=== PATIENT | male | born 1930 ===

== ENCOUNTER 2020-05-20 19:05 | Inpatient (IN) | payer OTHER ==
[2020-05-20] MEDS ORDERED: CEFEPIME HCL/D5W 2 GM/50 ML BAG IVPB ONE (19:40)
[2020-05-20] MEDS ORDERED: CLINDAMYCIN 600MG PREMIX IVPB 600 MG/50 ML BAG IVPB ONE ×2 (19:40→20:08)
[2020-05-20] MEDS ORDERED: SODIUM CHLORIDE 0.9% 500 ML INFUS.BAG IV ONE (19:53)
[2020-05-20 20:35] LABS: BASO % 0.2 % (0-2.0); HEMOGLOBIN 7.8 GM/dL (11.7-16.9); LYMPH % 3.8 % (8-40); MCH 30.3 pg (25.7-33.7); MCHC 31.2 g/dl (32.0-35.9); MEAN CELL VOLUME 96.9 fl (80-96); MONO % 4.1 % (3.8-10.2); NEUT % 91.9 % (42.8-82.8); PLATELET COUNT 226 K/MM3 (134-434); RBC 2.58 M/mm3 (4.00-5.60)
[2020-05-20] MEDS ORDERED: CEFEPIME 2 GM/100 ML BAG IVPB ONE (20:43)
[2020-05-20 20:46] LABS: INR 1.49 (0.83-1.09); PROTHROMBIN TIME (PATIENT) 18.1 SEC (9.7-13.0)
[2020-05-20 20:49] LABS: ACTIVATED PTT 32.5 SECONDS (25.2-36.5)
[2020-05-20 20:54] LABS: CHLORIDE 106 mmol/L (98-107); POTASSIUM 5.5 mmol/L (3.5-5.1); SODIUM 151 mmol/L (136-145)
[2020-05-20 20:55] LABS: ANION GAP 3 MMOL/L (8-16); BLOOD UREA NITROGEN 24.8 mg/dL (7-18); CALCIUM 8.1 mg/dL (8.5-10.1); CO2 42 mmol/L (21-32); GLUCOSE,RANDOM 92 mg/dL (74-106)
[2020-05-20 20:59] LABS: CREATININE 0.4 mg/dL (0.55-1.3); SGOT/AST 71 U/L (15-37); SGPT/ALT 11 U/L (13-61)
[2020-05-20 21:01] LABS: BILIRUBIN,TOTAL 0.6 mg/dL (0.2-1)
[2020-05-20 21:02] LABS: ALK PHOS 84 U/L (45-117)
[2020-05-20 21:17] LABS: ARTERIAL BLD GAS O2 SATURATION 93.3 mmHg (95-98); ARTERIAL BLOOD GAS PO2 61.2 mmHg (80-100); ARTERIAL BLOOD GAS pH 7.532 (7.350-7.450)
[2020-05-20] MEDS ORDERED: LACTATED RINGERS SOLUTION 1000 ML INFUS.BAG IV ONE (21:27)
[2020-05-20 23:09] LABS: EPI CELLS 16 /uL (0-25.1); HYALINE CASTS 0 /uL (0-3.1); PH,URINE 7.5 (5.0-8.0); URINE APPEARANCE CLEAR; URINE BACTERIA 70 /uL (0-1359); URINE BILIRUBIN NEGATIVE (NEGATIVE); URINE COLOR YELLOW; URINE GLUCOSE (UA) NEGATIVE (NEGATIVE); URINE KETONE NEGATIVE (NEGATIVE); URINE LEUK ESTERASE NEGATIVE (NEGATIVE); URINE NITRITE NEGATIVE (NEGATIVE); URINE PROTEIN 2+ (NEGATIVE); URINE RBC 35 /uL (0-23.9); URINE WBC 5 /uL (0-25.8)
[2020-05-20 23:19] LABS: MACROCYTOSIS 1+; TARGET CELLS 1+
[2020-05-20 23:20] LABS: PLATELET ESTIMATE NORMAL; ROULEAU 1+
[2020-05-21] MEDS ORDERED: LACTATED RINGERS SOLUTION 1,000 ML/1,000 ML INFUS.BAG IV SCH (05:00)
[2020-05-21] MEDS ORDERED: VANCOMYCIN 1 GM in D5W (PRE-DOCKED) 1,000 MG/250 ML IVPB ONE (05:00)
[2020-05-21] MEDS ORDERED: SODIUM CHLORIDE 0.45% 1,000 ML IV SCH (05:45)
[2020-05-21] MEDS ORDERED: VANCOMYCIN 1 GRAM (PRE-DOCKED) 1,000 MG/250 ML BAG IVPB ONE (05:58)
[2020-05-21] MEDS ORDERED: CEFEPIME HCL/D5W 1 GM/50 ML BAG IVPB SCH (06:00)
[2020-05-21] MEDS ORDERED: HEPARIN NA (PORCINE) 5,000 UNITS/ML 1ML VIAL SQ SCH (06:00)
[2020-05-21] MEDS: METOPROLOL TARTRATE 25 MG TABLET (FP) PO SCH ×3 (06:16→21:16)
[2020-05-21] MEDS ORDERED: CLINDAMYCIN 600MG PREMIX IVPB 600 MG/50 ML BAG IVPB ONE (07:20)
[2020-05-21] MEDS ORDERED: ASPIRIN 81 MG CHEWABLE TABLETS ONE (07:25)
[2020-05-21] MEDS ORDERED: BACITRACIN 0.9 GM PACKET ONE (07:25)
[2020-05-21] MEDS: CLINDAMYCIN 600MG PREMIX IVPB 600 MG/50 ML BAG IVPB SCH ×2 (07:32→10:12)
[2020-05-21] MEDS: CEFEPIME HCL/D5W 2 GM/50 ML BAG IVPB SCH ×2 (07:32→11:49)
[2020-05-21 07:34] LABS: BASO % 0.2 % (0-2.0); EOS % 0.1 % (0-4.5); HEMATOCRIT 23.4 % (35.4-49); HEMOGLOBIN 7.2 GM/dL (11.7-16.9); MCH 29.8 pg (25.7-33.7); MCHC 30.8 g/dl (32.0-35.9); MEAN CELL VOLUME 96.8 fl (80-96); MEAN PLT VOLUME 10.6 fl (7.5-11.1); MONO % 6.6 % (3.8-10.2); NEUT % 85.1 % (42.8-82.8); PLATELET COUNT 157 K/MM3 (134-434); RBC 2.42 M/mm3 (4.00-5.60); WHITE BLOOD COUNT 8.2 K/mm3 (4.0-10.0)
[2020-05-21 07:55] LABS: CHLORIDE 109 mmol/L (98-107); SODIUM 154 mmol/L (136-145)
[2020-05-21 07:58] LABS: CALCIUM 7.8 mg/dL (8.5-10.1)
[2020-05-21 07:59] LABS: BLOOD UREA NITROGEN 25.1 mg/dL (7-18); CO2 40 mmol/L (21-32); GLUCOSE,RANDOM 105 mg/dL (74-106); MAGNESIUM 2.5 mg/dL (1.8-2.4)
[2020-05-21 08:02] LABS: CREATININE 0.4 mg/dL (0.55-1.3); SGOT/AST 16 U/L (15-37); SGPT/ALT 7 U/L (13-61)
[2020-05-21 08:03] LABS: TOT PROT 6.6 g/dl (6.4-8.2)
[2020-05-21 08:04] LABS: ALK PHOS 72 U/L (45-117)
[2020-05-21 08:25] LABS: ANION GAP 6 MMOL/L (8-16); POTASSIUM 2.8 mmol/L (3.5-5.1)
[2020-05-21] MEDS: KCL 10 MEQ IVPB 10 MEQ/100 ML INFUS.BAG IVPB SCH ×6 (09:27→19:58)
[2020-05-21] MEDS: ASPIRIN 81 MG CHEWABLE TABLETS PO SCH (10:12)
[2020-05-21] MEDS: levETIRAcetam 500 MG/5 ML INJECTION VIAL IVPB SCH ×2 (10:37→21:17)
[2020-05-21 11:31] LABS: ARTERIAL BLD GAS O2 SATURATION 98.9 mmHg (95-98); ARTERIAL BLOOD GAS BASE EXCESS 16.1 mmol/L (-2-2); ARTERIAL BLOOD GAS PO2 123.9 mmHg (80-100); ARTERIAL BLOOD GAS pH 7.599 (7.350-7.450)
[2020-05-21 11:34] LABS: ALLENS TEST POSITIVE
[2020-05-21 11:36] LABS: VENT MODE A/C
[2020-05-21 11:37] LABS: VENT RATE 16
[2020-05-21] MEDS ORDERED: PT OWN MED DRAWER 7, Y5N ONE ×3 (12:05→16:12)
[2020-05-21] MEDS ORDERED: PANTOPRAZOLE SODIUM 40 MG in SODIUM CHLORIDE 100 ML IVPB SCH (12:15)
[2020-05-21] MEDS: MUPIROCIN 2% TOPICAL OINTMENT FOR DECOLONIZATION NS SCH ×2 (12:30→21:18)
[2020-05-21] MEDS: PANTOPRAZOLE SODIUM 40 MG VIAL IVPUSH SCH (12:32)
[2020-05-21 13:17] LABS: PHOSPHOROUS 3.6 mg/dL (2.5-4.9)
[2020-05-21] MEDS ORDERED: SENNOSIDES 8.6MG TABLET (FP) PO PRN (13:25)
[2020-05-21 13:27] LABS: IRON SERUM 23 ug/dL (50-175); TOTAL IRON BINDING CAPACITY 147 ug/dL (250-450)
[2020-05-21] MEDS: ASCORBIC ACID 500 MG TABLET (FP) PO SCH (14:25)
[2020-05-21] MEDS: VALPROATE SODIUM 250 MG/5 ML UNIT DOSE CUP PO SCH ×2 (14:27→21:19)
[2020-05-21] MEDS ORDERED: ZINC OXIDE 20% TOPICAL OINTMENT 30 GM TUBE TP ONE (14:30)
[2020-05-21] MEDS ORDERED: TUBERCULIN PPD 5 TU/0.1ML SYRINGE (IN PATIENT USE ONLY) ID ONE (16:00)
[2020-05-21 17:02] LABS: BLOOD UREA NITROGEN 25.4 mg/dL (7-18); CALCIUM 7.6 mg/dL (8.5-10.1)
[2020-05-21 17:06] LABS: CREATININE 0.3 mg/dL (0.55-1.3)
[2020-05-21 17:15] LABS: POTASSIUM 2.7 mmol/L (3.5-5.1)
[2020-05-21] MEDS: MOXIFLOXACIN HCL 0.5% OPHTHALMIC 3 ML BOTTLE OD SCH ×2 (17:21→21:20)
[2020-05-21] MEDS: CEFEPIME 2 GM in DEXTROSE 5%-WATER 100 ML IVPB SCH (17:23)
[2020-05-21] MEDS: DEXTROSE 5%-WATER - 1,000 ML with POTASSIUM CHLORIDE 40 MEQ IV SCH (18:21)
[2020-05-21] MEDS: VANCOMYCIN 1 GRAM (PRE-DOCKED) 1,000 MG/250 ML BAG IVPB SCH (18:23)
[2020-05-21] MEDS: HEPARIN NA (PORCINE) 5,000 UNITS/ML 1ML VIAL SQ SCH (21:17)
[2020-05-21] MEDS: FERROUS SO4 300 MG/5 ML ORAL SOLN UNIT DOSE CUPS GT SCH (21:20)
[2020-05-21] MEDS ORDERED: CHLORHEXIDINE GLUCONATE 4% CLEANSER FOR DECOLONIZATION TP SCH (22:00)
[2020-05-21 22:21] LABS: CALCIUM 7.9 mg/dL (8.5-10.1)
[2020-05-21 22:25] LABS: CREATININE 0.4 mg/dL (0.55-1.3)
[2020-05-22] MEDS: LACTATED RINGERS SOLUTION 1,000 ML/1,000 ML INFUS.BAG IV SCH ×2 (01:11→01:12)
[2020-05-22] MEDS: CEFEPIME 2 GM in DEXTROSE 5%-WATER 100 ML IVPB SCH ×3 (01:12→17:23)
[2020-05-22] MEDS ORDERED: CEFEPIME HCL/D5W 2 GM/50 ML BAG IVPB SCH (02:00)
[2020-05-22] MEDS: DEXTROSE 5%-WATER - 1,000 ML with POTASSIUM CHLORIDE 40 MEQ IV SCH ×2 (06:19→14:34)
[2020-05-22] MEDS: VANCOMYCIN 1 GRAM (PRE-DOCKED) 1,000 MG/250 ML BAG IVPB SCH ×2 (06:21→17:24)
[2020-05-22] MEDS: METOPROLOL TARTRATE 25 MG TABLET (FP) PO SCH ×3 (06:21→22:00)
[2020-05-22] MEDS: MOXIFLOXACIN HCL 0.5% OPHTHALMIC 3 ML BOTTLE OD SCH ×3 (06:24→22:00)
[2020-05-22] MEDS: AMINO ACIDS/PROTEIN HYDROLYS 30 ML LIQUID.PKT PO SCH (08:22)
[2020-05-22] MEDS ORDERED: PT OWN MED DRAWER 7, Y5N ONE ×2 (09:50→16:28)
[2020-05-22] MEDS: FERROUS SO4 300 MG/5 ML ORAL SOLN UNIT DOSE CUPS GT SCH ×2 (09:55→22:00)
[2020-05-22] MEDS: levETIRAcetam 500 MG/5 ML INJECTION VIAL IVPB SCH ×2 (09:56→22:00)
[2020-05-22] MEDS: MUPIROCIN 2% TOPICAL OINTMENT FOR DECOLONIZATION NS SCH ×2 (09:56→22:56)
[2020-05-22] MEDS: PANTOPRAZOLE SODIUM 40 MG VIAL IVPUSH SCH (09:56)
[2020-05-22] MEDS: VALPROATE SODIUM 250 MG/5 ML UNIT DOSE CUP PO SCH ×2 (09:56→22:00)
[2020-05-22] MEDS: HEPARIN NA (PORCINE) 5,000 UNITS/ML 1ML VIAL SQ SCH ×2 (09:56→22:00)
[2020-05-22] MEDS: ASCORBIC ACID 500 MG TABLET (FP) PO SCH (09:57)
[2020-05-22] MEDS: ASPIRIN 81 MG CHEWABLE TABLETS PO SCH (09:59)
[2020-05-22 11:06] LABS: BASO % 0.1 % (0-2.0); EOS % 0.4 % (0-4.5); HEMATOCRIT 23.8 % (35.4-49); HEMOGLOBIN 7.7 GM/dL (11.7-16.9); MCH 29.6 pg (25.7-33.7); MCHC 32.5 g/dl (32.0-35.9); MEAN CELL VOLUME 91.3 fl (80-96); MEAN PLT VOLUME 10.8 fl (7.5-11.1); MONO % 8.1 % (3.8-10.2); NEUT % 84.4 % (42.8-82.8); PLATELET COUNT 143 K/MM3 (134-434); RBC 2.61 M/mm3 (4.00-5.60); RDW 21.8 % (11.9-15.9); WHITE BLOOD COUNT 9.1 K/mm3 (4.0-10.0)
[2020-05-22 11:33] LABS: CALCIUM 7.7 mg/dL (8.5-10.1)
[2020-05-22 11:34] LABS: MAGNESIUM 2.1 mg/dL (1.8-2.4)
[2020-05-22 11:37] LABS: CREATININE 0.3 mg/dL (0.55-1.3); PHOSPHOROUS 3.3 mg/dL (2.5-4.9)
[2020-05-22 11:38] LABS: BILIRUBIN,TOTAL 0.6 mg/dL (0.2-1); TOT PROT 6.4 g/dl (6.4-8.2)
[2020-05-22 11:58] LABS: ANISOCYTOSIS 1+; MACROCYTOSIS 0; PLATELET ESTIMATE DECREASED
[2020-05-22 11:59] LABS: POTASSIUM 2.5 mmol/L (3.5-5.1)
[2020-05-22] MEDS ORDERED: POTASSIUM CHLORIDE ORAL LIQUID 20 MEQ/15 ML GT SCH (12:00)
[2020-05-22] MEDS: KCL 10 MEQ IVPB 10 MEQ/100 ML INFUS.BAG IVPB SCH ×5 (13:16→23:00)
[2020-05-22 21:30] LABS: CALCIUM 7.7 mg/dL (8.5-10.1)
[2020-05-22 21:31] LABS: BLOOD UREA NITROGEN 18.3 mg/dL (7-18)
[2020-05-22 21:35] LABS: CREATININE 0.3 mg/dL (0.55-1.3)
[2020-05-22 21:37] LABS: POTASSIUM 2.8 mmol/L (3.5-5.1)
[2020-05-22] MEDS: CHLORHEXIDINE GLUCONATE 4% CLEANSER FOR DECOLONIZATION TP SCH (22:00)
[2020-05-22] MEDS: POTASSIUM CHLORIDE ORAL LIQUID 20 MEQ/15 ML PO SCH (22:00)
[2020-05-23] MEDS: KCL 10 MEQ IVPB 10 MEQ/100 ML INFUS.BAG IVPB SCH
[2020-05-23] MEDS ORDERED: PT OWN MED DRAWER 7, Y5N ONE ×5 (00:01→22:18)
[2020-05-23] MEDS: CEFEPIME 2 GM in DEXTROSE 5%-WATER 100 ML IVPB SCH ×2 (02:00→09:41)
[2020-05-23] MEDS: VANCOMYCIN 1 GRAM (PRE-DOCKED) 1,000 MG/250 ML BAG IVPB SCH ×2 (06:00→17:02)
[2020-05-23] MEDS: MOXIFLOXACIN HCL 0.5% OPHTHALMIC 3 ML BOTTLE OD SCH ×3 (06:10→22:40)
[2020-05-23] MEDS: DEXTROSE 5%-WATER - 1,000 ML with POTASSIUM CHLORIDE 40 MEQ IV SCH (06:10)
[2020-05-23] MEDS: METOPROLOL TARTRATE 25 MG TABLET (FP) PO SCH ×3 (06:14→22:36)
[2020-05-23] MEDS: PANTOPRAZOLE SODIUM 40 MG VIAL IVPUSH SCH (09:42)
[2020-05-23] MEDS: levETIRAcetam 500 MG/5 ML INJECTION VIAL IVPB SCH ×2 (09:43→22:35)
[2020-05-23] MEDS: HEPARIN NA (PORCINE) 5,000 UNITS/ML 1ML VIAL SQ SCH ×2 (09:43→22:35)
[2020-05-23] MEDS: POTASSIUM CHLORIDE ORAL LIQUID 20 MEQ/15 ML PO SCH ×2 (09:43→22:39)
[2020-05-23] MEDS: ASPIRIN 81 MG CHEWABLE TABLETS PO SCH (09:43)
[2020-05-23] MEDS: VALPROATE SODIUM 250 MG/5 ML UNIT DOSE CUP PO SCH ×2 (09:44→22:41)
[2020-05-23] MEDS: ASCORBIC ACID 500 MG TABLET (FP) PO SCH (09:44)
[2020-05-23] MEDS: MUPIROCIN 2% TOPICAL OINTMENT FOR DECOLONIZATION NS SCH ×2 (09:52→22:41)
[2020-05-23] MEDS: FERROUS SO4 300 MG/5 ML ORAL SOLN UNIT DOSE CUPS GT SCH ×2 (10:29→22:41)
[2020-05-23] MEDS: AMINO ACIDS/PROTEIN HYDROLYS 30 ML LIQUID.PKT PO SCH (10:29)
[2020-05-23 13:14] LABS: BASO % 0.1 % (0-2.0); EOS % 0.7 % (0-4.5); HEMATOCRIT 20.6 % (35.4-49); LYMPH % 8.1 % (8-40); MCH 29.1 pg (25.7-33.7); MEAN CELL VOLUME 90.7 fl (80-96); MEAN PLT VOLUME 10.3 fl (7.5-11.1); MONO % 7.5 % (3.8-10.2); NEUT % 83.6 % (42.8-82.8); PLATELET COUNT 121 K/MM3 (134-434); RBC 2.28 M/mm3 (4.00-5.60); RDW 21.3 % (11.9-15.9); WHITE BLOOD COUNT 8.1 K/mm3 (4.0-10.0)
[2020-05-23 13:28] LABS: HEMOGLOBIN 6.6 GM/dL (11.7-16.9)
[2020-05-23 13:34] LABS: CHLORIDE 106 mmol/L (98-107); POTASSIUM 3.7 mmol/L (3.5-5.1); SODIUM 147 mmol/L (136-145)
[2020-05-23 13:37] LABS: ANION GAP 7 MMOL/L (8-16); BLOOD UREA NITROGEN 12.1 mg/dL (7-18); CALCIUM 7.6 mg/dL (8.5-10.1); CO2 34 mmol/L (21-32); GLUCOSE,RANDOM 145 mg/dL (74-106)
[2020-05-23 13:40] LABS: CREATININE 0.3 mg/dL (0.55-1.3); PHOSPHOROUS 2.7 mg/dL (2.5-4.9); SGOT/AST 14 U/L (15-37); SGPT/ALT < 6 U/L (13-61)
[2020-05-23 13:41] LABS: BILIRUBIN,TOTAL 0.4 mg/dL (0.2-1); TOT PROT 6.4 g/dl (6.4-8.2)
[2020-05-23 13:44] LABS: ALK PHOS 83 U/L (45-117)
[2020-05-23] MEDS ORDERED: MEROPENEM 1 GM VIAL (RESTRICTED TO ID) IVPB ONE (17:58)
[2020-05-23] MEDS ORDERED: DEXTROSE 5%-WATER 100 ML IVPB ONE (17:59)
[2020-05-23] MEDS: MEROPENEM 1 GM in DEXTROSE 5%-WATER 100 ML IVPB SCH (18:44)
[2020-05-23] MEDS: CHLORHEXIDINE GLUCONATE 4% CLEANSER FOR DECOLONIZATION TP SCH (22:40)
[2020-05-24] MEDS: MEROPENEM 1 GM in DEXTROSE 5%-WATER 100 ML IVPB SCH ×3 (02:00→17:39)
[2020-05-24] MEDS ORDERED: DEXTROSE 5%-WATER 100 ML IVPB ONE ×3 (04:48→15:18)
[2020-05-24] MEDS ORDERED: MEROPENEM 1 GM VIAL (RESTRICTED TO ID) IVPB ONE ×3 (04:48→15:18)
[2020-05-24 05:46] LABS: ALLENS TEST POSITIVE; ARTERIAL BLD GAS O2 SATURATION 98.4 mmHg (95-98); ARTERIAL BLOOD GAS BASE EXCESS 12.3 mmol/L (-2-2); ARTERIAL BLOOD GAS PO2 113.9 mmHg (80-100)
[2020-05-24 05:47] LABS: VENT MODE A/C; VENT RATE 16
[2020-05-24 06:53] LABS: BASO % 0.2 % (0-2.0); EOS % 0.5 % (0-4.5); HEMATOCRIT 22.4 % (35.4-49); HEMOGLOBIN 7.3 GM/dL (11.7-16.9); LYMPH % 5.8 % (8-40); MCH 28.9 pg (25.7-33.7); MCHC 32.4 g/dl (32.0-35.9); MEAN CELL VOLUME 89.2 fl (80-96); MEAN PLT VOLUME 9.9 fl (7.5-11.1); MONO % 7.9 % (3.8-10.2); NEUT % 85.6 % (42.8-82.8); PLATELET COUNT 116 K/MM3 (134-434); RBC 2.51 M/mm3 (4.00-5.60); RDW 19.7 % (11.9-15.9); WHITE BLOOD COUNT 9.5 K/mm3 (4.0-10.0)
[2020-05-24 07:11] LABS: CHLORIDE 104 mmol/L (98-107); POTASSIUM 3.1 mmol/L (3.5-5.1); SODIUM 146 mmol/L (136-145)
[2020-05-24 07:16] LABS: ANION GAP 6 MMOL/L (8-16); BLOOD UREA NITROGEN 8.4 mg/dL (7-18); CALCIUM 7.6 mg/dL (8.5-10.1); CO2 36 mmol/L (21-32)
[2020-05-24] MEDS: METOPROLOL TARTRATE 25 MG TABLET (FP) PO SCH ×3 (07:16→22:43)
[2020-05-24 07:17] LABS: GLUCOSE,RANDOM 104 mg/dL (74-106)
[2020-05-24] MEDS: VANCOMYCIN 1 GRAM (PRE-DOCKED) 1,000 MG/250 ML BAG IVPB SCH ×2 (07:17→17:39)
[2020-05-24] MEDS: MOXIFLOXACIN HCL 0.5% OPHTHALMIC 3 ML BOTTLE OD SCH ×3 (07:17→22:43)
[2020-05-24 07:19] LABS: CREATININE 0.2 mg/dL (0.55-1.3); SGOT/AST 12 U/L (15-37); SGPT/ALT < 6 U/L (13-61)
[2020-05-24 07:20] LABS: PHOSPHOROUS 2.7 mg/dL (2.5-4.9)
[2020-05-24 07:21] LABS: BILIRUBIN,TOTAL 0.5 mg/dL (0.2-1); TOT PROT 6.4 g/dl (6.4-8.2)
[2020-05-24 07:22] LABS: ALK PHOS 80 U/L (45-117)
[2020-05-24] MEDS ORDERED: SCOPOLAMINE HYDROBROMIDE 1 PATCH PATCH.TD72 TD SCH (08:45)
[2020-05-24] MEDS: AMINO ACIDS/PROTEIN HYDROLYS 30 ML LIQUID.PKT PO SCH (09:04)
[2020-05-24] MEDS: KCL 10 MEQ IVPB 10 MEQ/100 ML INFUS.BAG IVPB SCH ×2 (09:04→09:51)
[2020-05-24] MEDS: DEXTROSE 5%-WATER - 1,000 ML with POTASSIUM CHLORIDE 40 MEQ IV SCH ×3 (09:41→17:39)
[2020-05-24] MEDS: ASPIRIN 81 MG CHEWABLE TABLETS PO SCH (09:48)
[2020-05-24] MEDS: POTASSIUM CHLORIDE ORAL LIQUID 20 MEQ/15 ML PO SCH ×2 (09:48→22:43)
[2020-05-24] MEDS: PANTOPRAZOLE SODIUM 40 MG VIAL IVPUSH SCH (09:48)
[2020-05-24] MEDS: ASCORBIC ACID 500 MG TABLET (FP) PO SCH (09:49)
[2020-05-24] MEDS: HEPARIN NA (PORCINE) 5,000 UNITS/ML 1ML VIAL SQ SCH ×2 (09:50→22:42)
[2020-05-24] MEDS: MUPIROCIN 2% TOPICAL OINTMENT FOR DECOLONIZATION NS SCH ×2 (09:50→22:41)
[2020-05-24] MEDS: levETIRAcetam 500 MG/5 ML INJECTION VIAL IVPB SCH ×2 (09:50→22:43)
[2020-05-24 13:12] VITALS: BMI 24.2
[2020-05-24] MEDS ORDERED: PT OWN MED DRAWER 7, Y5N ONE ×3 (14:36→22:24)
[2020-05-24] MEDS: FERROUS SO4 300 MG/5 ML ORAL SOLN UNIT DOSE CUPS GT SCH ×2 (14:37→22:42)
[2020-05-24] MEDS: VALPROATE SODIUM 250 MG/5 ML UNIT DOSE CUP PO SCH ×2 (14:37→22:42)
[2020-05-24 20:49] LABS: HEMATOCRIT 20.4 % (35.4-49); MCH 29.3 pg (25.7-33.7); MCHC 32.2 g/dl (32.0-35.9); MEAN CELL VOLUME 91.2 fl (80-96); MEAN PLT VOLUME 10.4 fl (7.5-11.1); PLATELET COUNT 107 K/MM3 (134-434); RBC 2.23 M/mm3 (4.00-5.60); RDW 19.2 % (11.9-15.9); WHITE BLOOD COUNT 8.2 K/mm3 (4.0-10.0)
[2020-05-24 20:55] LABS: HEMOGLOBIN 6.6 GM/dL (11.7-16.9)
[2020-05-24 22:13] LABS: HEMATOCRIT 21.7 % (35.4-49); MCH 29.3 pg (25.7-33.7); MCHC 32.2 g/dl (32.0-35.9); MEAN PLT VOLUME 10.1 fl (7.5-11.1); PLATELET COUNT 118 K/MM3 (134-434); RBC 2.39 M/mm3 (4.00-5.60); RDW 19.4 % (11.9-15.9); WHITE BLOOD COUNT 9.1 K/mm3 (4.0-10.0)
[2020-05-24] MEDS: CHLORHEXIDINE GLUCONATE 4% CLEANSER FOR DECOLONIZATION TP SCH (22:42)
[2020-05-25] MEDS: MEROPENEM 1 GM in DEXTROSE 5%-WATER 100 ML IVPB SCH ×3 (02:00→17:01)
[2020-05-25] MEDS ORDERED: MEROPENEM 1 GM VIAL (RESTRICTED TO ID) IVPB ONE ×3 (03:46→16:54)
[2020-05-25] MEDS ORDERED: DEXTROSE 5%-WATER 100 ML IVPB ONE ×3 (03:47→16:54)
[2020-05-25] MEDS: DEXTROSE 5%-WATER - 1,000 ML with POTASSIUM CHLORIDE 40 MEQ IV SCH (06:50)
[2020-05-25] MEDS: MOXIFLOXACIN HCL 0.5% OPHTHALMIC 3 ML BOTTLE OD SCH ×3 (06:50→23:26)
[2020-05-25] MEDS: VANCOMYCIN 1 GRAM (PRE-DOCKED) 1,000 MG/250 ML BAG IVPB SCH ×2 (06:51→17:02)
[2020-05-25] MEDS: METOPROLOL TARTRATE 25 MG TABLET (FP) PO SCH ×3 (06:51→23:26)
[2020-05-25 07:08] LABS: CHLORIDE 101 mmol/L (98-107); POTASSIUM 3.3 mmol/L (3.5-5.1); SODIUM 141 mmol/L (136-145)
[2020-05-25 07:14] LABS: BASO % 0.1 % (0-2.0); EOS % 1.2 % (0-4.5); HEMATOCRIT 25.9 % (35.4-49); HEMOGLOBIN 8.4 GM/dL (11.7-16.9); LYMPH % 6.6 % (8-40); MCHC 32.5 g/dl (32.0-35.9); MEAN CELL VOLUME 89.4 fl (80-96); MEAN PLT VOLUME 9.5 fl (7.5-11.1); NEUT % 83.1 % (42.8-82.8); PLATELET COUNT 134 K/MM3 (134-434); RDW 17.5 % (11.9-15.9); WHITE BLOOD COUNT 10.1 K/mm3 (4.0-10.0)
[2020-05-25 07:15] LABS: ANION GAP 4 MMOL/L (8-16); BLOOD UREA NITROGEN 7.2 mg/dL (7-18); CALCIUM 7.6 mg/dL (8.5-10.1); CO2 36 mmol/L (21-32); GLUCOSE,RANDOM 100 mg/dL (74-106); MAGNESIUM 1.8 mg/dL (1.8-2.4)
[2020-05-25 07:18] LABS: CREATININE < 0.2 mg/dL (0.55-1.3); PHOSPHOROUS 2.5 mg/dL (2.5-4.9); SGOT/AST 15 U/L (15-37); SGPT/ALT < 6 U/L (13-61)
[2020-05-25 07:20] LABS: BILIRUBIN,TOTAL 1.2 mg/dL (0.2-1); TOT PROT 6.5 g/dl (6.4-8.2)
[2020-05-25 07:21] LABS: ALK PHOS 84 U/L (45-117)
[2020-05-25] MEDS ORDERED: MAGNESIUM SULF 50% (8.12 MEQ/2 ML-1 GM VIAL) IVPB ONE (08:32)
[2020-05-25] MEDS ORDERED: NAPH,MB-DB/K PH,MBDB POWDER PACKET PO ONE (08:34)
[2020-05-25] MEDS ORDERED: PT OWN MED DRAWER 7, Y5N ONE ×2 (08:40→09:12)
[2020-05-25] MEDS ORDERED: MAGNESIUM 1GM/D5W - 1 GM/100 ML IVPB IVPB ONE (08:45)
[2020-05-25] MEDS: AMINO ACIDS/PROTEIN HYDROLYS 30 ML LIQUID.PKT PO SCH (09:00)
[2020-05-25] MEDS: levETIRAcetam 500 MG/5 ML INJECTION VIAL IVPB SCH ×2 (09:07→23:26)
[2020-05-25] MEDS: PANTOPRAZOLE SODIUM 40 MG VIAL IVPUSH SCH (09:08)
[2020-05-25] MEDS: VALPROATE SODIUM 250 MG/5 ML UNIT DOSE CUP PO SCH ×2 (09:11→23:25)
[2020-05-25] MEDS: POTASSIUM CHLORIDE ORAL LIQUID 20 MEQ/15 ML PO SCH ×2 (09:14→14:11)
[2020-05-25] MEDS: FERROUS SO4 300 MG/5 ML ORAL SOLN UNIT DOSE CUPS GT SCH ×2 (09:15→23:55)
[2020-05-25] MEDS: HEPARIN NA (PORCINE) 5,000 UNITS/ML 1ML VIAL SQ SCH ×2 (09:16→23:25)
[2020-05-25] MEDS: MUPIROCIN 2% TOPICAL OINTMENT FOR DECOLONIZATION NS SCH ×2 (09:17→23:25)
[2020-05-25] MEDS: ASPIRIN 81 MG CHEWABLE TABLETS PO SCH (09:18)
[2020-05-25] MEDS: ASCORBIC ACID 500 MG TABLET (FP) PO SCH (09:18)
[2020-05-25] MEDS: KCL 10 MEQ IVPB 10 MEQ/100 ML INFUS.BAG IVPB SCH ×3 (09:18→11:55)
[2020-05-25 09:21] LABS: ANISOCYTOSIS 1+; MACROCYTOSIS 0; PLATELET ESTIMATE DECREASED
[2020-05-25] MEDS ORDERED: POTASSIUM CHLORIDE TABS 20 MEQ TABLET.ER (FP) PO SCH (10:00)
[2020-05-25] MEDS ORDERED: POTASSIUM CHLORIDE ORAL LIQUID 20 MEQ/15 ML PO SCH (13:30)
[2020-05-25] MEDS: CHLORHEXIDINE GLUCONATE 4% CLEANSER FOR DECOLONIZATION TP SCH (23:25)
[2020-05-26] MEDS: MEROPENEM 1 GM in DEXTROSE 5%-WATER 100 ML IVPB SCH ×4 (03:13→17:00)
[2020-05-26 06:16] LABS: BASO % 0.9 % (0-2.0); EOS % 1.6 % (0-4.5); HEMATOCRIT 24.2 % (35.4-49); HEMOGLOBIN 7.8 GM/dL (11.7-16.9); LYMPH % 6.6 % (8-40); MCH 28.9 pg (25.7-33.7); MCHC 32.2 g/dl (32.0-35.9); MEAN CELL VOLUME 89.7 fl (80-96); MEAN PLT VOLUME 9.4 fl (7.5-11.1); MONO % 8.3 % (3.8-10.2); NEUT % 82.6 % (42.8-82.8); PLATELET COUNT 159 K/MM3 (134-434); RDW 17.8 % (11.9-15.9); WHITE BLOOD COUNT 7.9 K/mm3 (4.0-10.0)
[2020-05-26 06:35] LABS: CHLORIDE 102 mmol/L (98-107); POTASSIUM 4.1 mmol/L (3.5-5.1); SODIUM 141 mmol/L (136-145)
[2020-05-26 06:37] LABS: ANION GAP 4 MMOL/L (8-16); BLOOD UREA NITROGEN 9.2 mg/dL (7-18); CALCIUM 7.4 mg/dL (8.5-10.1); CO2 35 mmol/L (21-32)
[2020-05-26 06:38] LABS: GLUCOSE,RANDOM 106 mg/dL (74-106)
[2020-05-26 06:40] LABS: CREATININE < 0.2 mg/dL (0.55-1.3); SGOT/AST 10 U/L (15-37)
[2020-05-26 06:42] LABS: BILIRUBIN,TOTAL 0.5 mg/dL (0.2-1); TOT PROT 6.3 g/dl (6.4-8.2)
[2020-05-26 06:43] LABS: ALK PHOS 79 U/L (45-117)
[2020-05-26 06:45] LABS: SGPT/ALT < 6 U/L (13-61)
[2020-05-26] MEDS: METOPROLOL TARTRATE 25 MG TABLET (FP) PO SCH ×3 (07:05→22:04)
[2020-05-26] MEDS: VANCOMYCIN 1 GRAM (PRE-DOCKED) 1,000 MG/250 ML BAG IVPB SCH ×2 (07:05→17:00)
[2020-05-26] MEDS: MOXIFLOXACIN HCL 0.5% OPHTHALMIC 3 ML BOTTLE OD SCH ×3 (07:05→22:05)
[2020-05-26] MEDS ORDERED: MEROPENEM 1 GM VIAL (RESTRICTED TO ID) IVPB ONE ×2 (09:37→14:57)
[2020-05-26] MEDS ORDERED: DEXTROSE 5%-WATER 100 ML IVPB ONE ×2 (09:37→14:57)
[2020-05-26] MEDS: AMINO ACIDS/PROTEIN HYDROLYS 30 ML LIQUID.PKT PO SCH (09:42)
[2020-05-26] MEDS: ASPIRIN 81 MG CHEWABLE TABLETS PO SCH (09:43)
[2020-05-26] MEDS: POTASSIUM CHLORIDE ORAL LIQUID 20 MEQ/15 ML PO SCH ×2 (09:44→22:05)
[2020-05-26] MEDS: levETIRAcetam 500 MG/5 ML INJECTION VIAL IVPB SCH ×2 (09:44→22:03)
[2020-05-26] MEDS: VALPROATE SODIUM 250 MG/5 ML UNIT DOSE CUP PO SCH ×2 (09:46→22:02)
[2020-05-26] MEDS: HEPARIN NA (PORCINE) 5,000 UNITS/ML 1ML VIAL SQ SCH ×2 (09:46→22:03)
[2020-05-26] MEDS: ASCORBIC ACID 500 MG TABLET (FP) PO SCH (09:46)
[2020-05-26] MEDS: FERROUS SO4 300 MG/5 ML ORAL SOLN UNIT DOSE CUPS GT SCH ×2 (09:48→22:03)
[2020-05-26] MEDS: PANTOPRAZOLE SODIUM 40 MG VIAL IVPUSH SCH (09:53)
[2020-05-26] MEDS ORDERED: PT OWN MED DRAWER 7, Y5N ONE ×2 (10:34→16:02)
[2020-05-26] MEDS ORDERED: SENNOSIDES 8.6MG TABLET (FP) PO PRN (17:01)
[2020-05-27] MEDS ORDERED: DEXTROSE 5%-WATER 100 ML IVPB ONE ×3 (00:38→17:02)
[2020-05-27] MEDS ORDERED: MEROPENEM 1 GM VIAL (RESTRICTED TO ID) IVPB ONE ×3 (00:38→17:01)
[2020-05-27] MEDS: MEROPENEM 1 GM in DEXTROSE 5%-WATER 100 ML IVPB SCH ×3 (01:53→17:10)
[2020-05-27] MEDS: METOPROLOL TARTRATE 25 MG TABLET (FP) PO SCH ×3 (06:28→21:06)
[2020-05-27] MEDS: VANCOMYCIN 1 GRAM (PRE-DOCKED) 1,000 MG/250 ML BAG IVPB SCH ×2 (06:28→17:11)
[2020-05-27] MEDS: MOXIFLOXACIN HCL 0.5% OPHTHALMIC 3 ML BOTTLE OD SCH ×3 (06:29→21:06)
[2020-05-27] MEDS ORDERED: AMINO ACIDS/PROTEIN HYDROLYS 30 ML LIQUID.PKT PO SCH (08:00)
[2020-05-27 08:11] LABS: BASO % 0.3 % (0-2.0); EOS % 1.8 % (0-4.5); HEMOGLOBIN 7.4 GM/dL (11.7-16.9); LYMPH % 10.2 % (8-40); MCH 29.2 pg (25.7-33.7); MCHC 32.1 g/dl (32.0-35.9); MEAN CELL VOLUME 90.9 fl (80-96); MEAN PLT VOLUME 9.2 fl (7.5-11.1); MONO % 12.9 % (3.8-10.2); NEUT % 74.8 % (42.8-82.8); PLATELET COUNT 202 K/MM3 (134-434); RBC 2.53 M/mm3 (4.00-5.60); RDW 17.4 % (11.9-15.9); WHITE BLOOD COUNT 8.2 K/mm3 (4.0-10.0)
[2020-05-27] MEDS ORDERED: FUROSEMIDE 40 MG/4 ML INJECTABLE VIAL IVPUSH ONE (08:36)
[2020-05-27] MEDS: SCOPOLAMINE HYDROBROMIDE 1 PATCH PATCH.TD72 TD SCH (09:50)
[2020-05-27] MEDS ORDERED: PT OWN MED DRAWER 7, Y5N ONE (10:15)
[2020-05-27 10:18] LABS: POTASSIUM 3.7 mmol/L (3.5-5.1)
[2020-05-27 10:23] LABS: BLOOD UREA NITROGEN 9.8 mg/dL (7-18); CALCIUM 7.7 mg/dL (8.5-10.1); CREATININE 0.2 mg/dL (0.55-1.3)
[2020-05-27 10:25] LABS: BILIRUBIN,TOTAL 0.5 mg/dL (0.2-1); TOT PROT 6.5 g/dl (6.4-8.2)
[2020-05-27] MEDS: POTASSIUM CHLORIDE ORAL LIQUID 20 MEQ/15 ML PO SCH ×2 (10:25→21:04)
[2020-05-27] MEDS: FERROUS SO4 300 MG/5 ML ORAL SOLN UNIT DOSE CUPS GT SCH ×2 (10:25→21:05)
[2020-05-27] MEDS: PANTOPRAZOLE SODIUM 40 MG VIAL IVPUSH SCH (10:26)
[2020-05-27] MEDS: ASCORBIC ACID 500 MG TABLET (FP) PO SCH (10:27)
[2020-05-27] MEDS: levETIRAcetam 500 MG/5 ML INJECTION VIAL IVPB SCH ×2 (10:27→21:04)
[2020-05-27] MEDS: ASPIRIN 81 MG CHEWABLE TABLETS PO SCH (10:28)
[2020-05-27 11:49] LABS: ANISOCYTOSIS 1+; MACROCYTOSIS 1+; PLATELET ESTIMATE NORMAL
[2020-05-27] MEDS: HEPARIN NA (PORCINE) 5,000 UNITS/ML 1ML VIAL SQ SCH ×2 (11:54→21:04)
[2020-05-27] MEDS: VALPROATE SODIUM 250 MG/5 ML UNIT DOSE CUP PO SCH ×2 (14:08→21:05)
[2020-05-27] MEDS: ACETAMINOPHEN 650 MG/20.3 ML ORAL SOLUTION (CUPS) PO PRN (15:21)
[2020-05-27] MEDS: AMINO ACIDS/PROTEIN HYDROLYS 30 ML LIQUID.PKT PO SCH (17:10)
[2020-05-28] MEDS ORDERED: DEXTROSE 5%-WATER 100 ML IVPB ONE ×3 (00:47→17:31)
[2020-05-28] MEDS ORDERED: MEROPENEM 1 GM VIAL (RESTRICTED TO ID) IVPB ONE ×3 (00:47→17:31)
[2020-05-28] MEDS: MEROPENEM 1 GM in DEXTROSE 5%-WATER 100 ML IVPB SCH ×3 (01:35→17:54)
[2020-05-28] MEDS: METOPROLOL TARTRATE 25 MG TABLET (FP) PO SCH ×3 (05:36→21:01)
[2020-05-28] MEDS: VANCOMYCIN 1 GRAM (PRE-DOCKED) 1,000 MG/250 ML BAG IVPB SCH ×2 (05:36→17:54)
[2020-05-28] MEDS: MOXIFLOXACIN HCL 0.5% OPHTHALMIC 3 ML BOTTLE OD SCH ×3 (05:47→21:03)
[2020-05-28 08:18] LABS: BASO % 0.2 % (0-2.0); HEMATOCRIT 24.4 % (35.4-49); HEMOGLOBIN 7.7 GM/dL (11.7-16.9); LYMPH % 9.8 % (8-40); MCH 29.4 pg (25.7-33.7); MCHC 31.6 g/dl (32.0-35.9); MEAN CELL VOLUME 92.9 fl (80-96); MEAN PLT VOLUME 9.8 fl (7.5-11.1); PLATELET COUNT 217 K/MM3 (134-434); RBC 2.63 M/mm3 (4.00-5.60); RDW 17.2 % (11.9-15.9); WHITE BLOOD COUNT 8.8 K/mm3 (4.0-10.0)
[2020-05-28 08:39] LABS: ALBUMIN 1.1 g/dl (3.4-5.0); ALK PHOS 81 U/L (45-117); ANION GAP 5 MMOL/L (8-16); BILIRUBIN,TOTAL 1.1 mg/dL (0.2-1); BLOOD UREA NITROGEN 13.2 mg/dL (7-18); CALCIUM 7.8 mg/dL (8.5-10.1); CHLORIDE 98 mmol/L (98-107); CO2 35 mmol/L (21-32); CREATININE < 0.2 mg/dL (0.55-1.3); GLUCOSE,RANDOM 111 mg/dL (74-106); POTASSIUM 4.6 mmol/L (3.5-5.1); SGOT/AST 14 U/L (15-37); SGPT/ALT 7 U/L (13-61); SODIUM 137 mmol/L (136-145)
[2020-05-28] MEDS: AMINO ACIDS/PROTEIN HYDROLYS 30 ML LIQUID.PKT PO SCH ×2 (08:48→17:54)
[2020-05-28] MEDS ORDERED: PT OWN MED DRAWER 7, Y5N ONE (10:15)
[2020-05-28] MEDS: PANTOPRAZOLE SODIUM 40 MG VIAL IVPUSH SCH (10:20)
[2020-05-28] MEDS: levETIRAcetam 500 MG/5 ML INJECTION VIAL IVPB SCH ×2 (10:21→21:02)
[2020-05-28] MEDS: ASCORBIC ACID 500 MG TABLET (FP) PO SCH (10:22)
[2020-05-28] MEDS: HEPARIN NA (PORCINE) 5,000 UNITS/ML 1ML VIAL SQ SCH ×2 (10:22→21:03)
[2020-05-28] MEDS: POTASSIUM CHLORIDE ORAL LIQUID 20 MEQ/15 ML PO SCH ×2 (10:22→21:03)
[2020-05-28] MEDS: VALPROATE SODIUM 250 MG/5 ML UNIT DOSE CUP PO SCH ×2 (10:22→21:02)
[2020-05-28] MEDS: ASPIRIN 81 MG CHEWABLE TABLETS PO SCH (10:22)
[2020-05-28] MEDS: FERROUS SO4 300 MG/5 ML ORAL SOLN UNIT DOSE CUPS GT SCH ×2 (10:22→21:02)
[2020-05-28] MEDS: MULTIVIT-MINERALS ORAL LIQUID PO SCH (10:22)
[2020-05-28] MEDS: ACETAMINOPHEN 650 MG/20.3 ML ORAL SOLUTION (CUPS) PO PRN ×2 (10:28→20:53)
[2020-05-28 10:45] LABS: ANISOCYTOSIS 0; MACROCYTOSIS 0; PLATELET ESTIMATE NORMAL
[2020-05-29] MEDS ORDERED: DEXTROSE 5%-WATER 100 ML IVPB ONE ×3 (01:23→18:41)
[2020-05-29] MEDS ORDERED: MEROPENEM 1 GM VIAL (RESTRICTED TO ID) IVPB ONE ×3 (01:23→18:41)
[2020-05-29] MEDS: MEROPENEM 1 GM in DEXTROSE 5%-WATER 100 ML IVPB SCH ×3 (01:26→18:58)
[2020-05-29] MEDS: METOPROLOL TARTRATE 25 MG TABLET (FP) PO SCH ×3 (05:49→21:26)
[2020-05-29] MEDS: VANCOMYCIN 1 GRAM (PRE-DOCKED) 1,000 MG/250 ML BAG IVPB SCH ×2 (05:49→20:12)
[2020-05-29] MEDS: MOXIFLOXACIN HCL 0.5% OPHTHALMIC 3 ML BOTTLE OD SCH ×3 (05:50→21:31)
[2020-05-29 08:28] LABS: BASO % 0.3 % (0-2.0); EOS % 1.4 % (0-4.5); HEMATOCRIT 22.3 % (35.4-49); LYMPH % 9.2 % (8-40); MCH 29.3 pg (25.7-33.7); MCHC 31.3 g/dl (32.0-35.9); MEAN CELL VOLUME 93.7 fl (80-96); MEAN PLT VOLUME 9.7 fl (7.5-11.1); MONO % 14.7 % (3.8-10.2); NEUT % 74.4 % (42.8-82.8); PLATELET COUNT 279 K/MM3 (134-434); RBC 2.39 M/mm3 (4.00-5.60); RDW 17.8 % (11.9-15.9)
[2020-05-29] MEDS: AMINO ACIDS/PROTEIN HYDROLYS 30 ML LIQUID.PKT PO SCH ×2 (08:45→18:01)
[2020-05-29 08:46] LABS: CHLORIDE 100 mmol/L (98-107); POTASSIUM 4.7 mmol/L (3.5-5.1); SODIUM 137 mmol/L (136-145)
[2020-05-29 08:48] LABS: ALBUMIN 0.9 g/dl (3.4-5.0); ANION GAP 2 MMOL/L (8-16); BLOOD UREA NITROGEN 15.1 mg/dL (7-18); CALCIUM 7.3 mg/dL (8.5-10.1); CO2 35 mmol/L (21-32); GLUCOSE,RANDOM 91 mg/dL (74-106)
[2020-05-29 08:51] LABS: SGOT/AST 12 U/L (15-37); SGPT/ALT < 6 U/L (13-61)
[2020-05-29 08:52] LABS: CREATININE 0.2 mg/dL (0.55-1.3)
[2020-05-29 08:53] LABS: BILIRUBIN,TOTAL 0.4 mg/dL (0.2-1); TOT PROT 6.4 g/dl (6.4-8.2)
[2020-05-29 08:54] LABS: ALK PHOS 77 U/L (45-117)
[2020-05-29] MEDS ORDERED: PT OWN MED DRAWER 7, Y5N ONE ×2 (10:04→20:51)
[2020-05-29] MEDS: ASPIRIN 81 MG CHEWABLE TABLETS PO SCH (10:13)
[2020-05-29] MEDS: VALPROATE SODIUM 250 MG/5 ML UNIT DOSE CUP PO SCH ×2 (10:13→21:26)
[2020-05-29] MEDS: FERROUS SO4 300 MG/5 ML ORAL SOLN UNIT DOSE CUPS GT SCH ×2 (10:13→21:29)
[2020-05-29] MEDS: ASCORBIC ACID 500 MG TABLET (FP) PO SCH (10:13)
[2020-05-29] MEDS: PANTOPRAZOLE SODIUM 40 MG VIAL IVPUSH SCH (10:14)
[2020-05-29] MEDS: levETIRAcetam 500 MG/5 ML INJECTION VIAL IVPB SCH ×2 (10:14→22:22)
[2020-05-29] MEDS: HEPARIN NA (PORCINE) 5,000 UNITS/ML 1ML VIAL SQ SCH ×2 (10:14→21:25)
[2020-05-29] MEDS: POTASSIUM CHLORIDE ORAL LIQUID 20 MEQ/15 ML PO SCH (10:14)
[2020-05-29] MEDS: ACETAMINOPHEN 650 MG/20.3 ML ORAL SOLUTION (CUPS) PO PRN ×2 (10:15→15:41)
[2020-05-29 11:29] LABS: ANISOCYTOSIS 1+; PLATELET ESTIMATE NORMAL
[2020-05-29] MEDS: MULTIVIT-MINERALS ORAL LIQUID PO SCH (12:50)
[2020-05-30] MEDS ORDERED: MEROPENEM 1 GM VIAL (RESTRICTED TO ID) IVPB ONE ×3 (00:42→17:02)
[2020-05-30] MEDS ORDERED: DEXTROSE 5%-WATER 100 ML IVPB ONE ×3 (00:42→17:02)
[2020-05-30] MEDS: MEROPENEM 1 GM in DEXTROSE 5%-WATER 100 ML IVPB SCH ×3 (01:11→17:36)
[2020-05-30] MEDS: METOPROLOL TARTRATE 25 MG TABLET (FP) PO SCH ×3 (06:47→22:02)
[2020-05-30] MEDS: MOXIFLOXACIN HCL 0.5% OPHTHALMIC 3 ML BOTTLE OD SCH ×3 (06:47→22:02)
[2020-05-30] MEDS: VANCOMYCIN 1 GRAM (PRE-DOCKED) 1,000 MG/250 ML BAG IVPB SCH ×2 (06:47→18:27)
[2020-05-30 09:08] LABS: BASO % 0.4 % (0-2.0); EOS % 1.4 % (0-4.5); HEMATOCRIT 26.6 % (35.4-49); HEMOGLOBIN 8.7 GM/dL (11.7-16.9); LYMPH % 9.4 % (8-40); MCH 30.9 pg (25.7-33.7); MCHC 32.8 g/dl (32.0-35.9); MEAN CELL VOLUME 94.3 fl (80-96); MEAN PLT VOLUME 9.9 fl (7.5-11.1); MONO % 13.3 % (3.8-10.2); NEUT % 75.5 % (42.8-82.8); PLATELET COUNT 330 K/MM3 (134-434); RBC 2.82 M/mm3 (4.00-5.60)
[2020-05-30 09:09] LABS: POTASSIUM 4.5 mmol/L (3.5-5.1)
[2020-05-30 09:14] LABS: BLOOD UREA NITROGEN 14.6 mg/dL (7-18)
[2020-05-30 09:15] LABS: CALCIUM 7.5 mg/dL (8.5-10.1)
[2020-05-30 09:16] LABS: CREATININE 0.2 mg/dL (0.55-1.3)
[2020-05-30 09:18] LABS: BILIRUBIN,TOTAL 0.4 mg/dL (0.2-1); TOT PROT 6.8 g/dl (6.4-8.2)
[2020-05-30] MEDS: ASPIRIN 81 MG CHEWABLE TABLETS PO SCH (09:49)
[2020-05-30] MEDS: VALPROATE SODIUM 250 MG/5 ML UNIT DOSE CUP PO SCH ×2 (09:49→22:01)
[2020-05-30] MEDS: AMINO ACIDS/PROTEIN HYDROLYS 30 ML LIQUID.PKT PO SCH ×2 (09:49→17:36)
[2020-05-30] MEDS: PANTOPRAZOLE SODIUM 40 MG VIAL IVPUSH SCH (09:52)
[2020-05-30] MEDS: ASCORBIC ACID 500 MG TABLET (FP) PO SCH (09:52)
[2020-05-30] MEDS: levETIRAcetam 500 MG/5 ML INJECTION VIAL IVPB SCH ×2 (09:53→22:01)
[2020-05-30] MEDS: MULTIVIT-MINERALS ORAL LIQUID PO SCH (09:58)
[2020-05-30] MEDS: HEPARIN NA (PORCINE) 5,000 UNITS/ML 1ML VIAL SQ SCH ×2 (09:58→22:01)
[2020-05-30] MEDS: FERROUS SO4 300 MG/5 ML ORAL SOLN UNIT DOSE CUPS GT SCH ×2 (09:59→22:01)
[2020-05-30] MEDS: POTASSIUM CHLORIDE ORAL LIQUID 20 MEQ/15 ML PO SCH (09:59)
[2020-05-30] MEDS ORDERED: PT OWN MED DRAWER 7, Y5N ONE (10:04)
[2020-05-30] MEDS: SCOPOLAMINE HYDROBROMIDE 1 PATCH PATCH.TD72 TD SCH (10:46)
[2020-05-30] MEDS: ACETAMINOPHEN 650 MG/20.3 ML ORAL SOLUTION (CUPS) PO PRN ×2 (13:36→22:00)
[2020-05-30] MEDS: COLLAGENASE CLOSTRIDIUM HIST. 30 GRAMS TUBE TP SCH (14:31)
[2020-05-30] MEDS: fentaNYL 12mcg/hr PATCH.TD72 TD SCH (14:31)
[2020-05-31] MEDS ORDERED: MEROPENEM 1 GM VIAL (RESTRICTED TO ID) IVPB ONE ×3 (01:09→16:13)
[2020-05-31] MEDS ORDERED: DEXTROSE 5%-WATER 100 ML IVPB ONE ×3 (01:10→16:13)
[2020-05-31] MEDS: MEROPENEM 1 GM in DEXTROSE 5%-WATER 100 ML IVPB SCH ×3 (01:27→17:29)
[2020-05-31] MEDS: VANCOMYCIN 1 GRAM (PRE-DOCKED) 1,000 MG/250 ML BAG IVPB SCH ×2 (05:34→19:00)
[2020-05-31] MEDS: METOPROLOL TARTRATE 25 MG TABLET (FP) PO SCH ×3 (05:34→21:17)
[2020-05-31] MEDS: MOXIFLOXACIN HCL 0.5% OPHTHALMIC 3 ML BOTTLE OD SCH ×3 (05:34→21:17)
[2020-05-31 09:40] LABS: BASO % 0.8 % (0-2.0); EOS % 1.6 % (0-4.5); HEMATOCRIT 26.1 % (35.4-49); HEMOGLOBIN 8.4 GM/dL (11.7-16.9); LYMPH % 11.5 % (8-40); MCH 30.7 pg (25.7-33.7); MCHC 32.3 g/dl (32.0-35.9); MEAN CELL VOLUME 94.8 fl (80-96); MEAN PLT VOLUME 10.2 fl (7.5-11.1); MONO % 10.6 % (3.8-10.2); NEUT % 75.5 % (42.8-82.8); PLATELET COUNT 320 K/MM3 (134-434); RBC 2.75 M/mm3 (4.00-5.60); RDW 17.1 % (11.9-15.9); WHITE BLOOD COUNT 7.7 K/mm3 (4.0-10.0)
[2020-05-31 09:56] LABS: CHLORIDE 98 mmol/L (98-107); POTASSIUM 4.3 mmol/L (3.5-5.1); SODIUM 135 mmol/L (136-145)
[2020-05-31 10:01] LABS: CALCIUM 7.6 mg/dL (8.5-10.1)
[2020-05-31 10:02] LABS: ANION GAP 3 MMOL/L (8-16); CO2 34 mmol/L (21-32); GLUCOSE,RANDOM 85 mg/dL (74-106)
[2020-05-31 10:05] LABS: CREATININE < 0.2 mg/dL (0.55-1.3); SGOT/AST 14 U/L (15-37); SGPT/ALT 8 U/L (13-61)
[2020-05-31 10:06] LABS: BILIRUBIN,TOTAL 0.4 mg/dL (0.2-1); TOT PROT 6.9 g/dl (6.4-8.2)
[2020-05-31 10:08] LABS: ALK PHOS 92 U/L (45-117)
[2020-05-31] MEDS: MULTIVIT-MINERALS ORAL LIQUID PO SCH (10:42)
[2020-05-31] MEDS: AMINO ACIDS/PROTEIN HYDROLYS 30 ML LIQUID.PKT PO SCH ×2 (10:54→17:29)
[2020-05-31] MEDS: POTASSIUM CHLORIDE ORAL LIQUID 20 MEQ/15 ML PO SCH (10:55)
[2020-05-31] MEDS: ASPIRIN 81 MG CHEWABLE TABLETS PO SCH (10:55)
[2020-05-31] MEDS: FERROUS SO4 300 MG/5 ML ORAL SOLN UNIT DOSE CUPS GT SCH ×2 (10:57→21:17)
[2020-05-31] MEDS: PANTOPRAZOLE SODIUM 40 MG VIAL IVPUSH SCH (10:57)
[2020-05-31] MEDS: ASCORBIC ACID 500 MG TABLET (FP) PO SCH (10:57)
[2020-05-31] MEDS: VALPROATE SODIUM 250 MG/5 ML UNIT DOSE CUP PO SCH ×2 (10:57→21:17)
[2020-05-31] MEDS: HEPARIN NA (PORCINE) 5,000 UNITS/ML 1ML VIAL SQ SCH ×2 (10:58→21:16)
[2020-05-31] MEDS: COLLAGENASE CLOSTRIDIUM HIST. 30 GRAMS TUBE TP SCH (10:58)
[2020-05-31] MEDS: levETIRAcetam 500 MG/5 ML INJECTION VIAL IVPB SCH ×2 (10:58→21:16)
[2020-05-31] MEDS ORDERED: PT OWN MED DRAWER 7, Y5N ONE (15:10)
[2020-06-01] MEDS ORDERED: MEROPENEM 1 GM VIAL (RESTRICTED TO ID) IVPB ONE ×3 (01:01→15:43)
[2020-06-01] MEDS ORDERED: DEXTROSE 5%-WATER 100 ML IVPB ONE ×3 (01:01→15:44)
[2020-06-01] MEDS: MEROPENEM 1 GM in DEXTROSE 5%-WATER 100 ML IVPB SCH ×3 (01:14→17:39)
[2020-06-01] MEDS: VANCOMYCIN 1 GRAM (PRE-DOCKED) 1,000 MG/250 ML BAG IVPB SCH ×2 (05:24→18:56)
[2020-06-01] MEDS: MOXIFLOXACIN HCL 0.5% OPHTHALMIC 3 ML BOTTLE OD SCH ×3 (05:24→22:41)
[2020-06-01] MEDS: METOPROLOL TARTRATE 25 MG TABLET (FP) PO SCH ×3 (05:24→22:41)
[2020-06-01 08:20] LABS: BASO % 0.8 % (0-2.0); EOS % 1.5 % (0-4.5); HEMATOCRIT 27.1 % (35.4-49); HEMOGLOBIN 8.5 GM/dL (11.7-16.9); LYMPH % 12.3 % (8-40); MCH 30.4 pg (25.7-33.7); MCHC 31.4 g/dl (32.0-35.9); MEAN CELL VOLUME 96.8 fl (80-96); MEAN PLT VOLUME 10.3 fl (7.5-11.1); MONO % 12.1 % (3.8-10.2); NEUT % 73.3 % (42.8-82.8); PLATELET COUNT 320 K/MM3 (134-434); WHITE BLOOD COUNT 6.4 K/mm3 (4.0-10.0)
[2020-06-01 08:41] LABS: POTASSIUM 4.5 mmol/L (3.5-5.1)
[2020-06-01 08:46] LABS: CALCIUM 7.7 mg/dL (8.5-10.1)
[2020-06-01 08:47] LABS: BLOOD UREA NITROGEN 11.4 mg/dL (7-18)
[2020-06-01 08:50] LABS: CREATININE 0.2 mg/dL (0.55-1.3)
[2020-06-01 08:52] LABS: BILIRUBIN,TOTAL 0.5 mg/dL (0.2-1); TOT PROT 6.8 g/dl (6.4-8.2)
[2020-06-01] MEDS: AMINO ACIDS/PROTEIN HYDROLYS 30 ML LIQUID.PKT PO SCH ×2 (12:06→17:37)
[2020-06-01] MEDS: ASPIRIN 81 MG CHEWABLE TABLETS PO SCH (12:07)
[2020-06-01] MEDS: FERROUS SO4 300 MG/5 ML ORAL SOLN UNIT DOSE CUPS GT SCH ×2 (12:08→22:39)
[2020-06-01] MEDS: HEPARIN NA (PORCINE) 5,000 UNITS/ML 1ML VIAL SQ SCH ×2 (12:08→22:40)
[2020-06-01] MEDS: VALPROATE SODIUM 250 MG/5 ML UNIT DOSE CUP PO SCH ×2 (12:08→22:39)
[2020-06-01] MEDS: levETIRAcetam 500 MG/5 ML INJECTION VIAL IVPB SCH ×2 (12:09→22:40)
[2020-06-01] MEDS: POTASSIUM CHLORIDE ORAL LIQUID 20 MEQ/15 ML PO SCH (12:13)
[2020-06-01] MEDS: ASCORBIC ACID 500 MG TABLET (FP) PO SCH (12:14)
[2020-06-01] MEDS: COLLAGENASE CLOSTRIDIUM HIST. 30 GRAMS TUBE TP SCH (12:14)
[2020-06-01] MEDS: PANTOPRAZOLE SODIUM 40 MG VIAL IVPUSH SCH (12:14)
[2020-06-01] MEDS: MULTIVIT-MINERALS ORAL LIQUID PO SCH (13:37)
[2020-06-02] MEDS ORDERED: DEXTROSE 5%-WATER 100 ML IVPB ONE ×3 (01:50→17:30)
[2020-06-02] MEDS ORDERED: MEROPENEM 1 GM VIAL (RESTRICTED TO ID) IVPB ONE ×3 (01:50→17:30)
[2020-06-02] MEDS: MEROPENEM 1 GM in DEXTROSE 5%-WATER 100 ML IVPB SCH ×2 (01:58→11:30)
[2020-06-02] MEDS: METOPROLOL TARTRATE 25 MG TABLET (FP) PO SCH ×3 (05:28→22:44)
[2020-06-02] MEDS: MOXIFLOXACIN HCL 0.5% OPHTHALMIC 3 ML BOTTLE OD SCH ×3 (05:28→22:44)
[2020-06-02] MEDS: VANCOMYCIN 1 GRAM (PRE-DOCKED) 1,000 MG/250 ML BAG IVPB SCH ×2 (05:54→17:40)
[2020-06-02 08:31] LABS: BASO % 0.8 % (0-2.0); EOS % 1.5 % (0-4.5); HEMATOCRIT 27.8 % (35.4-49); HEMOGLOBIN 9.2 GM/dL (11.7-16.9); LYMPH % 9.8 % (8-40); MCH 32.1 pg (25.7-33.7); MCHC 33.2 g/dl (32.0-35.9); MEAN CELL VOLUME 96.7 fl (80-96); MEAN PLT VOLUME 9.9 fl (7.5-11.1); MONO % 9.9 % (3.8-10.2); PLATELET COUNT 412 K/MM3 (134-434); RBC 2.88 M/mm3 (4.00-5.60); RDW 19.2 % (11.9-15.9); WHITE BLOOD COUNT 7.9 K/mm3 (4.0-10.0)
[2020-06-02 08:44] LABS: POTASSIUM 4.3 mmol/L (3.5-5.1)
[2020-06-02 08:58] LABS: ALBUMIN 1.1 g/dl (3.4-5.0); CALCIUM 7.8 mg/dL (8.5-10.1)
[2020-06-02 08:59] LABS: BLOOD UREA NITROGEN 11.2 mg/dL (7-18)
[2020-06-02 09:01] LABS: CREATININE 0.2 mg/dL (0.55-1.3)
[2020-06-02 09:02] LABS: BILIRUBIN,TOTAL 0.4 mg/dL (0.2-1); TOT PROT 7.6 g/dl (6.4-8.2)
[2020-06-02] MEDS: levETIRAcetam 500 MG/5 ML INJECTION VIAL IVPB SCH (10:32)
[2020-06-02] MEDS: ACETAMINOPHEN 650 MG/20.3 ML ORAL SOLUTION (CUPS) PO PRN ×2 (11:28→16:08)
[2020-06-02] MEDS: AMINO ACIDS/PROTEIN HYDROLYS 30 ML LIQUID.PKT PO SCH ×2 (11:28→17:40)
[2020-06-02] MEDS: VALPROATE SODIUM 250 MG/5 ML UNIT DOSE CUP PO SCH ×2 (11:29→22:42)
[2020-06-02] MEDS: PANTOPRAZOLE SODIUM 40 MG VIAL IVPUSH SCH (11:30)
[2020-06-02] MEDS: POTASSIUM CHLORIDE ORAL LIQUID 20 MEQ/15 ML PO SCH (11:30)
[2020-06-02] MEDS: SCOPOLAMINE HYDROBROMIDE 1 PATCH PATCH.TD72 TD SCH (11:30)
[2020-06-02] MEDS: MULTIVIT-MINERALS ORAL LIQUID PO SCH (11:30)
[2020-06-02] MEDS: HEPARIN NA (PORCINE) 5,000 UNITS/ML 1ML VIAL SQ SCH ×2 (11:31→22:44)
[2020-06-02] MEDS: ASPIRIN 81 MG CHEWABLE TABLETS PO SCH (11:31)
[2020-06-02] MEDS: ASCORBIC ACID 500 MG TABLET (FP) PO SCH (11:31)
[2020-06-02] MEDS: FERROUS SO4 300 MG/5 ML ORAL SOLN UNIT DOSE CUPS GT SCH ×2 (11:32→22:42)
[2020-06-02] MEDS: COLLAGENASE CLOSTRIDIUM HIST. 30 GRAMS TUBE TP SCH (11:32)
[2020-06-02] MEDS ORDERED: PNEUMOC 13-VAL CONJ-DIP CRM/PF 0.5 ML DISP.SYRIN IM ONE (15:30)
[2020-06-02] MEDS: fentaNYL 12mcg/hr PATCH.TD72 TD SCH (16:08)
[2020-06-02] MEDS: FENTANYL PATCH WASTE TD PRN (16:21)
[2020-06-02] MEDS: levETIRAcetam 500 MG/5 ML ORAL SOLUTION (UNIT-DOSE CUPS) GT SCH (22:42)
[2020-06-03] MEDS: METOPROLOL TARTRATE 25 MG TABLET (FP) PO SCH ×3 (06:50→21:49)
[2020-06-03] MEDS: MOXIFLOXACIN HCL 0.5% OPHTHALMIC 3 ML BOTTLE OD SCH ×3 (06:50→21:50)
[2020-06-03] MEDS ORDERED: PT OWN MED DRAWER 7, Y5N ONE (10:41)
[2020-06-03 11:04] LABS: BASO % 0.9 % (0-2.0); EOS % 1.4 % (0-4.5); HEMATOCRIT 27.2 % (35.4-49); HEMOGLOBIN 8.8 GM/dL (11.7-16.9); LYMPH % 11.5 % (8-40); MCH 31.5 pg (25.7-33.7); MCHC 32.4 g/dl (32.0-35.9); MEAN CELL VOLUME 97.1 fl (80-96); MEAN PLT VOLUME 10.2 fl (7.5-11.1); MONO % 7.4 % (3.8-10.2); NEUT % 78.8 % (42.8-82.8); PLATELET COUNT 419 K/MM3 (134-434); RDW 19.5 % (11.9-15.9); WHITE BLOOD COUNT 7.9 K/mm3 (4.0-10.0)
[2020-06-03] MEDS: AMINO ACIDS/PROTEIN HYDROLYS 30 ML LIQUID.PKT PO SCH ×2 (11:04→18:15)
[2020-06-03] MEDS: MULTIVIT-MINERALS ORAL LIQUID PO SCH (11:05)
[2020-06-03] MEDS: ASPIRIN 81 MG CHEWABLE TABLETS PO SCH (11:05)
[2020-06-03] MEDS: VALPROATE SODIUM 250 MG/5 ML UNIT DOSE CUP PO SCH ×2 (11:05→21:49)
[2020-06-03] MEDS: POTASSIUM CHLORIDE ORAL LIQUID 20 MEQ/15 ML PO SCH (11:06)
[2020-06-03] MEDS: FERROUS SO4 300 MG/5 ML ORAL SOLN UNIT DOSE CUPS GT SCH ×2 (11:06→21:49)
[2020-06-03] MEDS: ASCORBIC ACID 500 MG TABLET (FP) PO SCH (11:07)
[2020-06-03] MEDS: COLLAGENASE CLOSTRIDIUM HIST. 30 GRAMS TUBE TP SCH (11:07)
[2020-06-03] MEDS: PANTOPRAZOLE SODIUM 40 MG VIAL IVPUSH SCH (11:08)
[2020-06-03] MEDS: HEPARIN NA (PORCINE) 5,000 UNITS/ML 1ML VIAL SQ SCH ×2 (11:11→21:50)
[2020-06-03 11:14] LABS: POTASSIUM 4.6 mmol/L (3.5-5.1)
[2020-06-03] MEDS: levETIRAcetam 500 MG/5 ML ORAL SOLUTION (UNIT-DOSE CUPS) GT SCH ×2 (11:14→21:50)
[2020-06-03 11:18] LABS: BLOOD UREA NITROGEN 14.2 mg/dL (7-18)
[2020-06-03 11:21] LABS: CREATININE 0.2 mg/dL (0.55-1.3)
[2020-06-03 11:22] LABS: BILIRUBIN,TOTAL 0.3 mg/dL (0.2-1)
[2020-06-03 11:23] LABS: TOT PROT 7.5 g/dl (6.4-8.2)
[2020-06-04] MEDS: METOPROLOL TARTRATE 25 MG TABLET (FP) PO SCH ×3 (05:30→21:52)
[2020-06-04 08:45] LABS: POTASSIUM 4.5 mmol/L (3.5-5.1)
[2020-06-04 08:50] LABS: ALBUMIN 1.1 g/dl (3.4-5.0); BASO % 1.1 % (0-2.0); BLOOD UREA NITROGEN 14.6 mg/dL (7-18); CALCIUM 7.9 mg/dL (8.5-10.1); EOS % 1.5 % (0-4.5); HEMATOCRIT 26.4 % (35.4-49); HEMOGLOBIN 8.8 GM/dL (11.7-16.9); LYMPH % 12.4 % (8-40); MCH 32.5 pg (25.7-33.7); MCHC 33.2 g/dl (32.0-35.9); MEAN CELL VOLUME 97.6 fl (80-96); MEAN PLT VOLUME 9.8 fl (7.5-11.1); MONO % 6.5 % (3.8-10.2); NEUT % 78.5 % (42.8-82.8); PLATELET COUNT 407 K/MM3 (134-434); RDW 20.1 % (11.9-15.9); WHITE BLOOD COUNT 7.3 K/mm3 (4.0-10.0)
[2020-06-04 08:53] LABS: CREATININE 0.2 mg/dL (0.55-1.3)
[2020-06-04 08:55] LABS: TOT PROT 7.5 g/dl (6.4-8.2)
[2020-06-04 08:56] LABS: BILIRUBIN,TOTAL 0.9 mg/dL (0.2-1)
[2020-06-04] MEDS ORDERED: PT OWN MED DRAWER 7, Y5N ONE (09:59)
[2020-06-04 10:16] LABS: PLATELET ESTIMATE NORMAL
[2020-06-04] MEDS: AMINO ACIDS/PROTEIN HYDROLYS 30 ML LIQUID.PKT PO SCH ×2 (10:30→18:51)
[2020-06-04] MEDS: levETIRAcetam 500 MG/5 ML ORAL SOLUTION (UNIT-DOSE CUPS) GT SCH ×2 (10:30→21:52)
[2020-06-04] MEDS: FERROUS SO4 300 MG/5 ML ORAL SOLN UNIT DOSE CUPS GT SCH ×2 (10:30→21:55)
[2020-06-04] MEDS: VALPROATE SODIUM 250 MG/5 ML UNIT DOSE CUP PO SCH ×2 (10:30→21:51)
[2020-06-04] MEDS: MULTIVIT-MINERALS ORAL LIQUID PO SCH (10:31)
[2020-06-04] MEDS: POTASSIUM CHLORIDE ORAL LIQUID 20 MEQ/15 ML PO SCH (10:31)
[2020-06-04] MEDS: ASCORBIC ACID 500 MG TABLET (FP) PO SCH (10:31)
[2020-06-04] MEDS: ASPIRIN 81 MG CHEWABLE TABLETS PO SCH (10:31)
[2020-06-04] MEDS: HEPARIN NA (PORCINE) 5,000 UNITS/ML 1ML VIAL SQ SCH ×2 (10:32→21:53)
[2020-06-04] MEDS: PANTOPRAZOLE SODIUM 40 MG VIAL IVPUSH SCH (10:33)
[2020-06-04] MEDS: COLLAGENASE CLOSTRIDIUM HIST. 30 GRAMS TUBE TP SCH (10:34)
[2020-06-04] MEDS: BANATROL PLUS POWDER PACKET GT SCH (21:50)
[2020-06-05] MEDS: METOPROLOL TARTRATE 25 MG TABLET (FP) PO SCH ×3 (06:10→22:58)
[2020-06-05] MEDS: BANATROL PLUS POWDER PACKET GT SCH ×3 (06:10→22:56)
[2020-06-05] MEDS: VALPROATE SODIUM 250 MG/5 ML UNIT DOSE CUP PO SCH ×2 (10:44→22:56)
[2020-06-05] MEDS: FERROUS SO4 300 MG/5 ML ORAL SOLN UNIT DOSE CUPS GT SCH ×2 (10:44→22:57)
[2020-06-05] MEDS: AMINO ACIDS/PROTEIN HYDROLYS 30 ML LIQUID.PKT PO SCH ×2 (10:44→19:04)
[2020-06-05] MEDS: levETIRAcetam 500 MG/5 ML ORAL SOLUTION (UNIT-DOSE CUPS) GT SCH ×2 (10:45→22:58)
[2020-06-05] MEDS: MULTIVIT-MINERALS ORAL LIQUID PO SCH (10:45)
[2020-06-05] MEDS: ASPIRIN 81 MG CHEWABLE TABLETS PO SCH (10:46)
[2020-06-05] MEDS: SCOPOLAMINE HYDROBROMIDE 1 PATCH PATCH.TD72 TD SCH (10:46)
[2020-06-05] MEDS: PANTOPRAZOLE SODIUM 40 MG VIAL IVPUSH SCH (10:47)
[2020-06-05] MEDS: POTASSIUM CHLORIDE ORAL LIQUID 20 MEQ/15 ML PO SCH (10:48)
[2020-06-05] MEDS: HEPARIN NA (PORCINE) 5,000 UNITS/ML 1ML VIAL SQ SCH ×2 (10:49→22:58)
[2020-06-05] MEDS: COLLAGENASE CLOSTRIDIUM HIST. 30 GRAMS TUBE TP SCH (10:49)
[2020-06-05] MEDS: ASCORBIC ACID 500 MG TABLET (FP) PO SCH (10:49)
[2020-06-05] MEDS: ACETAMINOPHEN 650 MG/20.3 ML ORAL SOLUTION (CUPS) PO PRN (13:58)
[2020-06-05] MEDS: FENTANYL PATCH WASTE TD PRN (16:25)
[2020-06-05] MEDS: fentaNYL 12mcg/hr PATCH.TD72 TD SCH (16:25)
[2020-06-06] MEDS: BANATROL PLUS POWDER PACKET GT SCH ×2 (05:18→14:59)
[2020-06-06] MEDS: METOPROLOL TARTRATE 25 MG TABLET (FP) PO SCH ×2 (05:19→14:59)
[2020-06-06] MEDS ORDERED: LORazepam 0.5 MG TABLET GT ONE ×2 (08:30→13:00)
[2020-06-06] MEDS ORDERED: oxyCODONE HCL 5 MG TABLET GT ONE ×2 (08:30→13:15)
[2020-06-06] MEDS ORDERED: PT OWN MED DRAWER 7, Y5N ONE (09:55)
[2020-06-06] MEDS: ASCORBIC ACID 500 MG TABLET (FP) PO SCH (10:00)
[2020-06-06] MEDS ORDERED: PANTOPRAZOLE SOD 40 MG SUSPENSION PACKET PO SCH (10:00)
[2020-06-06] MEDS: ASPIRIN 81 MG CHEWABLE TABLETS PO SCH (10:00)
[2020-06-06] MEDS: FERROUS SO4 300 MG/5 ML ORAL SOLN UNIT DOSE CUPS GT SCH (10:00)
[2020-06-06] MEDS: VALPROATE SODIUM 250 MG/5 ML UNIT DOSE CUP PO SCH (10:01)
[2020-06-06] MEDS: MULTIVIT-MINERALS ORAL LIQUID PO SCH (10:01)
[2020-06-06] MEDS: AMINO ACIDS/PROTEIN HYDROLYS 30 ML LIQUID.PKT PO SCH (10:01)
[2020-06-06] MEDS: HEPARIN NA (PORCINE) 5,000 UNITS/ML 1ML VIAL SQ SCH (10:01)
[2020-06-06] MEDS: levETIRAcetam 500 MG/5 ML ORAL SOLUTION (UNIT-DOSE CUPS) GT SCH (10:02)
[2020-06-06] MEDS: COLLAGENASE CLOSTRIDIUM HIST. 30 GRAMS TUBE TP SCH (10:02)
[2020-06-06] MEDS: POTASSIUM CHLORIDE ORAL LIQUID 20 MEQ/15 ML PO SCH (10:02)
[2020-06-06 15:18] VITALS: BP 148/79; PULSE 92; TEMP 99
== END 2020-06-06 15:14 | DRG 870 ==
LOC: JER 19:05 → JERBED 23:17 → JICU 05-21 08:49 → J5S 05-26 17:18
PROVIDERS: ADMIT Family Medicine; ATTEND Family Medicine
PROC: 5A1955Z Respiratory Ventilation, Greater than 96 Consecutive Hours (ICD-10-PCS; principal; 2020-05-20)
PROC: 3E0G76Z Introduction of Nutritional Substance into Upper GI, Via Natural or Artificial Opening (ICD-10-PCS; 2020-05-20)
PROC: 05HC33Z Insertion of Infusion Device into Left Basilic Vein, Percutaneous Approach (ICD-10-PCS; 2020-05-29)
PROC: B54NZZA Ultrasonography of Left Upper Extremity Veins, Guidance (ICD-10-PCS; 2020-05-29)
DX: A41.9 Sepsis, unspecified organism (principal); L89.154 Pressure ulcer of sacral region, stage 4; J18.9 Pneumonia, unspecified organism; R53.2 Functional quadriplegia; G92 Toxic encephalopathy; R65.21 Severe sepsis with septic shock; Z99.11 Dependence on respirator [ventilator] status; E87.0 Hyperosmolality and hypernatremia; J96.12 Chronic respiratory failure with hypercapnia; J96.11 Chronic respiratory failure with hypoxia; N17.9 Acute kidney failure, unspecified; E87.2 Acidosis; E87.3 Alkalosis; L89.320 Pressure ulcer of left buttock, unstageable; F03.90 Unspecified dementia, unspecified severity, without behavioral disturbance, psychotic disturbance, mood disturbance, and anxiety; I48.91 Unspecified atrial fibrillation; K21.9 Gastro-esophageal reflux disease without esophagitis; I25.10 Atherosclerotic heart disease of native coronary artery without angina pectoris; I10 Essential (primary) hypertension; Z93.0 Tracheostomy status; Z86.73 Personal history of transient ischemic attack (TIA), and cerebral infarction without residual deficits; D64.9 Anemia, unspecified; Z93.1 Gastrostomy status; Z88.0 Allergy status to penicillin; G40.909 Epilepsy, unspecified, not intractable, without status epilepticus; E87.6 Hypokalemia; E86.0 Dehydration; Z74.01 Bed confinement status
CPT/HCPCS: 36415; 36430; 36511; 36600; 71045-TC-FY; 80048; 80053; 81003; 82248; 82272; 82436; 82607; 82728; 82746; 82803; 82962; 83540; 83550; 83605; 83735; 84100; 84439; 84443; 84484; 85025; 85027; 85610; 85730; 86850; 86900; 86901; 86922; 87040; 87070; 87086; 87186; 87205; 87899; 90670; 93005; 93010; 93971; 94002; 99285-25; C9803; G0480; J1644; P9016; P9038; P9058; U0003